=== PATIENT | male | born 1975 | race Caucasian/White ===

== ENCOUNTER → 2017-05-16 | Outpatient (CLI) | payer BC ==
[~2017-05-16] MED LIST: ALPR0.5T72 PO; BSP5T PO; CLINDAMYCIN 150 MG PO; HYDR1TAB8 PO
--- NOTE | 2017-05-16 16:18 | Diagnostic Imaging Report ---
PATIENT HISTORY: RT RIB PAIN. Fall from tree three days ago. TECHNIQUE: AP and oblique views of the right ribs. COMPARISON: None. FINDINGS: The right lung is clear. No pneumothorax is seen. No acute displaced rib fractures are seen. IMPRESSION: No acute displaced rib fractures seen. Dictated by: Dictated on workstation # [id number]
== END ==
LOC: RAD 15:41
PROVIDERS: ATTEND Nurse Practitioner Family
DX: R07.81 Pleurodynia (principal); W19.XXXA Unspecified fall, initial encounter
CPT/HCPCS: 71100

== ENCOUNTER 2017-12-29 13:00 | Outpatient (CLI) | payer BC | END 2017-12-29 13:30 | disposition home or self-care (01) | LOC: SLEEP 13:00 | PROVIDERS: ATTEND Nurse Practitioner Family | DX: G47.33 Obstructive sleep apnea (adult) (pediatric) (principal) ==

== ENCOUNTER 2018-06-28 11:00 | Outpatient (RCR) | payer BC | END 2018-07-06 | disposition home or self-care (01) | DX: M54.6 Pain in thoracic spine (principal); M25.552 Pain in left hip ==

== ENCOUNTER 2019-09-26 09:58 | Emergency (ER) | payer BC ==
[~2019-09-26] VITALS: Ht 182 cm; Wt 97.7 kg
--- OUTSIDE RECORDS SUMMARY | 2019-09-26 10:06 | XMS REPORT | CCD ---
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 Name Role Phone PP Unavailable CCM Unavailable Summary Purpose Interface Exchange Insurance Providers Payer name Policy type / Coverage type Covered democrat ID Effective Begin Date Effective End Date Blue Cross Blue [facility] e Cross/Blue Shield [id number] 2017 Un known Family history Father Diagnosis Age At Onset Hyperlipidemia Unknown Coronary Artery Disease Unknown Hypertension Unknown Social History Social History Element Codes Description Effective Dates Marital status Unknown M arried 12/24/2013 Number of children Unknown 2 12/24/2013 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 12/24/[address]: 260353 Currently drinks alcohol 5 per week 12/24/2013 Allergies, Adverse Reactions, Alerts Substance Reaction Codes Entered Date Inactivated Date Status SULFA(SULFONAMIDE AN TIBIOTICS) rash, Unknown 4 No Inactive Date Active Past Medical History Illness Codes Condition Status Onset Date Resolved Date Pleurodynia ICD-9: 786.50 ICD-10: R07.81 Active 05/16/2017 Unknown Attention-deficit hy peractivity disorder, 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 ICD-10: F90.0 Active 12/24/2015 Unknown Encounter for genera l adult medical examination without abnormal findings ICD-9: V70.0 ICD-10: Z00.00 Active 12/24/2015 Unknown Acute laryngopharyng itis ICD-9: 465.0 ICD-10: J06.0 Active 06/17/2016 Unknown Other allergic rhinitis ICD-9: 477.8 ICD-10: J30.89 Active 06/17/2016 Unknown Other malaise ICD-9: 780.79 ICD-10: R53.81 Active 06/17/2016 Unknown Generalized anxiety disorder ICD-9: 300.00 ICD-10: F41.1 Active 12/24/2015 Unknown Irritable bowel synd cammie with diarrhea ICD-9: 564.1 ICD-10: K58.0 Active 12/24/2015 Unknown Anxiety ICD-9: 300.00 Active 12/24/2013 Unknow n Family history of ca rdiovascular disease ICD-9: V17.49 Active 12/24/2013 Unknown Irritable bowel synd cammie ICD-9: 564.1 Active 04/2013 Unknown Problems Condition Codes Effectiv e Dates Condition Status Pleurodynia ICD-9: 786.50 ICD-10: R07.81 05/16/2017 Active Attention-deficit hy peractivity disorder, 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 ICD-10: F90.0 12/24/2015 Active Encounter for genera l adult medical examination without abnormal findings ICD-9: V70.0 ICD-10: Z00.00 12/24/2015 Active Acute laryngopharyng itis ICD-9: 465.0 ICD-10: J06.0 06/17/2016 Active Other allergic rhinitis ICD-9: 477.8 ICD-10: J30.89 06/17/2016 Active Other malaise ICD-9: 780.79 ICD-10: R53.81 06/17/2016 Active Generalized anxiety disorder ICD-9: 300.00 ICD-10: F41.1 12/24/2015 Active Irritable bowel synd cammie with diarrhea ICD-9: 564.1 ICD-10: K58.0 12/24/2015 Active Anxiety ICD-9: 300.00 12/24/2013 Active Family history of ca rdiovascular disease ICD-9: V17.49 12/24/2013 Active Irritable bowel synd cammie ICD-9: 564.1 12/24/2013 Active Medications Medication Codes Instruc tions Start Date Stop Date Sta tus Fill Instructions buspirone 7.5 mg tablet RxNorm: 151014 1 TABLET(S) PO BID 09/19/2018 03/17/2019 Active hyoscyamine 0.125 mg sublingual tablet RxNorm: 1983622 TABLET(S) 1 TABLET(S ) SL TID PRN NEEDED 07/18/2018 08/16/2018 Inactive alprazolam 0.5 mg ta blet RxNorm: 547676 1 Tablet(s) PO BID as neede d 09/28/2017 11/26/2017 Inactive alprazolam 0.5 mg ta blet RxNorm: 169930 1 Tablet(s) PO BID as neede d 09/28/2017 10/27/2017 Inactive Adderall XR 10 mg ca psule,extended release RxNorm: 209662 1 Capsule(s) PO BID 08/19/2017 09/17/2017 In active Adderall XR 10 mg ca psule,extended release RxNorm: 475865 1 Capsule(s) PO BID 08/19/2017 09/17/2017 In active hyoscyamine 0.125 mg sublingual tablet RxNorm: 9301523 TABLET(S) 1 TABLET(S ) SL TID PRN NEEDED 08/15/2017 09/13/2017 Inactive Adderall XR 10 mg ca psule,extended release RxNorm: 337540 1 Capsule(s) PO BID 07/04/2017 08/02/2017 In active Percocet 5 mg-325 mg tablet RxNorm: 3223899 1 Tablet(s) PO Q6 PRN 05/16/2017 No Stop Date Active buspirone 7.5 mg tablet RxNorm: 058804 1 Tablet(s) PO BID 05/16/2017 02/09/2018 Inactive Adderall XR 10 mg ca psule,extended release RxNorm: 748992 1 Capsule(s) PO BID 05/16/2017 06/14/2017 In active alprazolam 0.5 mg ta blet RxNorm: 899467 1 Tablet(s) PO BID as neede d 05/16/2017 07/14/2017 Inactive Adderall XR 10 mg ca psule,extended release RxNorm: 839900 1 Capsule(s) PO BID 03/21/2017 04/19/2017 In active alprazolam 0.5 mg ta blet RxNorm: 053689 1 Tablet(s) PO BID as neede d 03/03/2017 05/01/2017 Inactive Adderall XR 10 mg ca psule,extended release RxNorm: 107709 1 Capsule(s) PO BID 01/25/2017 02/23/2017 In active Adderall XR 10 mg ca psule,extended release RxNorm: 255415 1 Capsule(s) PO daily 12/30/2016 01/24/2017 In active methylphenidate 10 m g tablet RxNorm: 9177261 1 Tablet(s) PO daily and 1/2 tab at noon as needed 10/06/2016 12/29/2016 Inactive alprazolam 0.5 mg ta blet RxNorm: 228682 1 Tablet(s) PO BID as neede d 09/14/2016 12/11/2016 Inactive Augmentin 500 mg-125 mg tablet RxNorm: 148019 1 Tablet(s) PO TID 06/18/2016 06/27/2016 Inactive Augmentin 500 mg-125 mg tablet RxNorm: 872635 1 Tablet(s) PO TID 06/18/2016 06/17/2016 Inactive methylphenidate 10 m g tablet RxNorm: 9019748 1 Tablet(s) PO daily and 1/2 tab at noon as needed 06/14/2016 07/13/2016 Inactive hyoscyamine 0.125 mg sublingual tablet RxNorm: 1128342 Tablet(s) 1 TABLET(S ) SL TID PRN NEEDED 05/19/2016 06/27/2016 Inactive methylphenidate 10 m g tablet RxNorm: 6199650 1 Tablet(s) PO daily and 1/2 at noon as needed 04/23/2016 05/22/2016 Inactive alprazolam 0.5 mg ta blet RxNorm: 900769 1 Tablet(s) PO BID as neede d 03/30/2016 07/25/2016 Inactive hyoscyamine 0.125 mg sublingual tablet RxNorm: 4521158 Tablet(s) 1 TABLET(S ) SL TID PRN NEEDED 03/30/2016 05/18/2016 Inactive methylphenidate 10 m g tablet RxNorm: 6719738 1 Tablet(s) PO daily and 1/2 at noon as needed 02/19/2016 04/22/2016 Inactive methylphenidate 10 m g tablet RxNorm: 9197161 1 Tablet(s) PO daily and 1/2 at noon as needed 02/19/2016 06/13/2016 Inactive hyoscyamine 0.125 mg sublingual tablet RxNorm: 1335403 1 TABLET(S) SL TID P RN NEEDED 02/19/2016 03/29/2016 Inactive alprazolam 0.5 mg ta blet RxNorm: 728076 1 Tablet(s) PO BID as neede d 01/08/2016 03/07/2016 Inactive methylphenidate 10 m g tablet RxNorm: 9482445 1 Tablet(s) PO daily and 1/2 at noon as needed 01/08/2016 02/18/2016 Inactive alprazolam 0.5 mg ta blet RxNorm: 818106 1 Tablet(s) PO QDAY PRN 12/25/2015 01/07/2016 Inactive methylphenidate 5 mg tablet RxNorm: 6305802 1 Tablet(s) PO daily 12/25/2015 01/07/2016 Inactive buspirone 7.5 mg tablet RxNorm: 908700 1 Tablet(s) PO BID 12/25/2015 09/19/2016 Inactive hyoscyamine 0.125 mg sublingual tablet RxNorm: 7608027 1 Tablet(s) SL TID P RN as needed 12/25/2015 03/29/2016 Inactive alprazolam 0.5 mg ta blet RxNorm: 390548 1 Tablet(s) PO QDAY PRN 11/17/2015 12/24/2015 Inactive alprazolam 0.5 mg ta blet RxNorm: 242824 1 Tablet(s) PO QDAY PRN 06/27/2015 05/18/2016 Inactive hyoscyamine 0.125 mg sublingual tablet RxNorm: 7513003 1 Tablet(s) SL TID P RN as needed 12/23/2014 06/20/2015 Inactive buspirone 7.5 mg tablet RxNorm: 626117 1 Tablet(s) PO BID 12/23/2014 09/18/2015 Inactive alprazolam 0.5 mg ta blet RxNorm: 439033 1 Tablet(s) PO QDAY PRN 12/23/2014 11/16/2015 Inactive buspirone 7.5 mg tablet RxNorm: 991653 1 Tablet(s) PO BID 12/24/2013 09/19/2014 Inactive hyoscyamine 0.125 mg sublingual tablet RxNorm: 1645742 1 Tablet(s) SL TID P RN as needed 12/24/2013 06/21/2014 Inactive hyoscyamine 0.125 mg sublingual tablet RxNorm: 2623980 Tablet(s) SL as need ed No Start Date 12/23/2013 Inactive alprazolam 0.5 mg ta blet RxNorm: 777984 Tablet(s) PO PRN No Start Date 12/22/2014 Inactive buspirone 7.5 mg tablet RxNorm: 460053 1 Tablet(s) PO BID No Start Date 12/23/2013 Inactive Medication Administered No Medication Administered data Immunizations Vaccine Codes Date Status Influenza CVX: 141 11/21 completed Tetanus, Diptheria, Pertussis CVX: 113 08/22/2003 completed Tetanus/Diptheria CVX: 113 08/22/2003 completed Assessments Condition Codes Effectiv e Dates Pleurodynia ICD-10: R07.81 ICD-9: 786.50 05/16/2017 Encounter for general adult medical exam ination without abnormal findings ICD-10: Z00.00 ICD-9: V70.0 12/30/2016 Attention-deficit hyperactivity disorder , predominantly inattentive type ICD-10: F90.0 ICD-9: 314.00 12/30/2016 Other allergic rhinitis ICD-10: J30. 89 ICD-9: 477.8 06/17/2016 Acute laryngopharyngitis ICD-10: J06 .0 ICD-9: 465.0 06/17/2016 Other malaise ICD-10: R53.81 ICD-9: 780.79 06/17/2016 Irritable bowel syndrome with diarrhea ICD-10: K58.0 ICD-9: 564.1 12/25/2015 Generalized anxiety disorder ICD-10: F41.1 ICD-9: 300.00 12/25/2015 Family history of cardiovascular disease ICD-9: V17.49 12/24/2013 Anxiety ICD-9: 300.00 Irritable bowel syndrome ICD-9: 564.1 12/24/2013 Reason For Visit Reason For Visit Effective Dates Notes chest pain/pressure 05/16/2017 well man exam (18-39 years) 12/30/2016 sinus congestion 06/17/2016 well man exam (18-39 years) 12/25/2015 anxiety 12/23/2014 anxiety 12/24/2013 Results Observation Observation Code Item Item Code Result Date C A/B FLU 6609581 Influe nza A Scr Negative 06/17/2016 C A/B FLU 3561110 Influe nza B Scr Negative 06/17/2016 Cbc With Differential Ord2 WBC 7.57 K/ul 12/25/2015 Cbc With Differential Ord2 RBC 5.15 M/ul 12/25/2015 Cbc With Differential Ord2 HGB 15.3 g/dl 12/25/2015 Cbc With Differential Ord2 HCT 45.1 % 12/25/2015 Cbc With Differential Ord2 Neut% 55.0 % 12/25/2015 Cbc With Differential Ord2 MCV 87.6 fl 12/25/2015 Cbc With Differential Ord2 Lymph% 34.5 % 12/25/2015 Cbc With Differential Ord2 MCH 29.7 pg 12/25/2015 Cbc With Differential Ord2 [place]% 8.1 % 12/25/2015 Cbc With Differential Ord2 MCHC 33.9 pg 12/25/2015 Cbc With Differential Ord2 Eos% 2.1 % 12/25/2015 Cbc With Differential Ord2 PLT 250 K/ul 12/25/2015 Cbc With Differential Ord2 Baso% 0.3 % 12/25/2015 Cbc With Differential Ord2 RDW 14.2 % 12/25/2015 Cbc With Differential Ord2 Neut ABS# 4.17 K/ul 12/25/2015 Cbc With Differential Ord2 Lymph ABS# 2.61 K/ul 12/25/2015 Cbc With Differential Ord2 [place] ABS# 0.6 K/ul 12/25/2015 Cbc With Differential Ord2 Eos ABS# 0.2 K/ul 12/25/2015 Cbc With Differential Ord2 Baso ABS# 0.0 K/ul 12/25/2015 Comp Metabolic Aat031 NA 140 mEq/L 12/25/2015 Comp Metabolic Vbk791 K 4.5 mEq/L 12/25/2015 Comp Metabolic Kda238 CL 107 mEq/L 12/25/2015 Comp Metabolic Kma853 CO2 27.0 mEq/L 12/25/2015 Comp Metabolic Wkd175 AN ION GAP 11 12/25/2015 Comp Metabolic Vqi186 GL UCOSE 92 mg/dL 12/25/2015 Comp Metabolic Kyo261 Cr eat 0.8 mg/dL 12/25/2015 Comp Metabolic Gts487 eG FR 113 ml/min/1.73m2 04/2015 Comp Metabolic Nqp818 BUN 15 mg/dL 12/25/2015 Comp Metabolic Vvi303 B/ C Ratio 18.5 Ratio 12/25/2015 Comp Metabolic Jlo821 CA LCIUM 9.4 mg/dL 12/25/2015 Comp Metabolic Lms049 AL K PHOS 37 U/L 12/25/2015 Comp Metabolic Knf668 T(SGOT) 24 U/L 12/25/2015 Comp Metabolic Tln490 AL T(SGPT) 25 U/L 12/25/2015 Comp Metabolic Hrc265 BI LI T 0.8 mg/dL 12/25/2015 Comp Metabolic Cgg476 AL BUMIN 4.5 g/dL 12/25/2015 Comp Metabolic Gsj387 TP RO 6.7 g/dL 12/25/2015 Comp Metabolic Hbm731 GL OB 2.2 g/dL 12/25/2015 Comp Metabolic Szs387 A/ G Ratio 2.1 Ratio 12/25/2015 Comp Metabolic Vue001 Os mo 280 mOsmo 12/25/2015 Tsh Ord6 hTSH II 1.84 uIU/mL 12/25/2015 Lipid Ord30 CHOL 183 mg/dL 12/25/2015 Lipid Ord30 HDL 54.0 mg/dl 12/25/2015 Lipid Ord30 TRIG 76 mg/dL 12/25/2015 Lipid Ord30 LDL 114 mg/dL 12/25/2015 Lipid Ord30 C/HDL 3.4 Ratio 12/25/2015 Review of Systems System Result Effective Dates Constitutional No recent illness 05/16/2017 Constitutional No anorexia 05/16/2017 Constitutional No night sweats 05/16/2017 Constitutional No chills 05/16/2017 Constitutional No diaphoresis 05/16/2017 Constitutional No fatigue 05/16/2017 Constitutional No fever 05/16/2017 Constitutional No insomnia 05/16/2017 Constitutional No malaise 05/16/2017 Constitutional No weight loss 05/16/2017 Constitutional No weight gain 05/16/2017 Cardiovascular No chest pain/pressure 05/16/2017 Respiratory No cough Respiratory No chest congestion 05/16/2017 Respiratory No dyspnea on exertion 05/16/2017 Dermatologic No rash Musculoskeletal bone pain 05/16/2017 Neurologic No alteration of consciousness 05/16/2017 Constitutional No recent illness 12/30/2016 Constitutional No anorexia 12/30/2016 Constitutional No night sweats 12/30/2016 Constitutional No chills 12/30/2016 Eyes No vision change Ears/Nose/Throat/Neck No dizziness 12/30/2016 Ears/Nose/Throat/Neck No headache 12/30/2016 Cardiovascular No chest pain/pressure 12/30/2016 Cardiovascular No dyspnea 12/30/2016 Respiratory No chest congestion 12/30/2016 Respiratory No chest tightness 12/30/2016 Respiratory No cough 10/2016 Gastrointestinal No anorexia 12/30/2016 Gastrointestinal No constipation 12/30/2016 Gastrointestinal No nausea 12/30/2016 Gastrointestinal No vomiting 12/30/2016 Genitourinary/Nephrology No anuria/oliguri a 12/30/2016 Genitourinary/Nephrology No dysuria 12/30/2016 Musculoskeletal No stiffness 12/30/2016 Musculoskeletal No swelling 12/30/2016 Dermatologic No rash 10/2016 Dermatologic No sores Neurologic No dizziness 12/30/2016 Neurologic No headache 1 03/01/2016 Psychiatric anxiety 10/2016 Psychiatric No depression 12/30/2016 Constitutional recent illness 06/17/2016 Constitutional chills Constitutional fever Eyes No eye erythema Ears/Nose/Throat/Neck nasal allergies 06/17/2016 Ears/Nose/Throat/Neck nasal discharge 06/17/2016 Ears/Nose/Throat/Neck postnasal drip 06/17/2016 Ears/Nose/Throat/Neck sinus congestion 06/17/2016 Ears/Nose/Throat/Neck sore throat 06/17/2016 Cardiovascular No chest pain/pressure 06/17/2016 Cardiovascular No dyspnea 06/17/2016 Respiratory chest congestion 06/17/2016 Respiratory cough 2016 Respiratory No dyspnea 0 06/17/2016 Gastrointestinal No constipation 06/17/2016 Gastrointestinal No diarrhea 06/17/2016 Gastrointestinal No nausea 06/17/2016 Gastrointestinal No vomiting 06/17/2016 Dermatologic No rash Neurologic No alteration of consciousness 06/17/2016 Neurologic No mental status change 06/17/2016 Constitutional No recent illness 12/25/2015 Constitutional No anorexia 12/25/2015 Constitutional No night sweats 12/25/2015 Constitutional No chills 12/25/2015 Psychiatric anxiety 11/0 04/2015 Eyes No vision change Ears/Nose/Throat/Neck No dizziness 12/25/2015 Ears/Nose/Throat/Neck No headache 12/25/2015 Cardiovascular No chest pain/pressure 12/25/2015 Cardiovascular No dyspnea 12/25/2015 Respiratory No chest congestion 12/25/2015 Respiratory No chest tightness 12/25/2015 Respiratory No cough 04/2015 Gastrointestinal No vomiting 12/25/2015 Gastrointestinal No nausea 12/25/2015 Gastrointestinal gas and bloating 12/25/2015 Gastrointestinal diarrhea 12/25/2015 Gastrointestinal No constipation 12/25/2015 Gastrointestinal abdominal pain 12/25/2015 Gastrointestinal No anorexia 12/25/2015 Genitourinary/Nephrology No anuria/oliguri a 12/25/2015 Genitourinary/Nephrology No dysuria 12/25/2015 Musculoskeletal No stiffness 12/25/2015 Musculoskeletal No swelling 12/25/2015 Dermatologic No rash 04/2015 Dermatologic No sores Neurologic No dizziness 12/25/2015 Neurologic No headache 1 02/23/2015 Psychiatric No depression 12/25/2015 Constitutional recent illness 12/23/2014 Constitutional No anorexia 12/23/2014 Constitutional No night sweats 12/23/2014 Constitutional No chills 12/23/2014 Constitutional No diaphoresis 12/23/2014 Constitutional fatigue 1 02/22/2014 Constitutional No fever 12/23/2014 Constitutional No insomnia 12/23/2014 Eyes No eye discharge Eyes No eye erythema 03/2014 Ears/Nose/Throat/Neck No dizziness 12/23/2014 Ears/Nose/Throat/Neck No headache 12/23/2014 Cardiovascular No chest pain/pressure 12/23/2014 Cardiovascular No dyspnea 12/23/2014 Respiratory No cough 03/2014 Gastrointestinal No abdominal pain 12/23/2014 Gastrointestinal No constipation 12/23/2014 Gastrointestinal No diarrhea 12/23/2014 Genitourinary/Nephrology No dysuria 12/23/2014 Musculoskeletal No joint complaint 12/23/2014 Dermatologic No rash 03/2014 Neurologic No alteration of consciousness 12/23/2014 Psychiatric anxiety 03/2014 Endocrine No dry or coarse skin 12/23/2014 Hematologic/Lymphatic No abnormal bl eeding and bruising 12/23/2014 Constitutional No recent illness 12/24/2013 Constitutional No anorexia 12/24/2013 Constitutional No night sweats 12/24/2013 Constitutional No chills 12/24/2013 Constitutional No diaphoresis 12/24/2013 Constitutional No fatigue 12/24/2013 Constitutional No fever 12/24/2013 Constitutional No insomnia 12/24/2013 Constitutional No malaise 12/24/2013 Eyes No eye discharge Eyes No eye erythema 04/2013 Ears/Nose/Throat/Neck No dizziness 12/24/2013 Ears/Nose/Throat/Neck No headache 12/24/2013 Cardiovascular No chest pain/pressure 12/24/2013 Cardiovascular No dyspnea 12/24/2013 Cardiovascular No edema 12/24/2013 Respiratory No productive sputum 12/24/2013 Respiratory No chest congestion 12/24/2013 Respiratory No cough 04/2013 Gastrointestinal No diarrhea 12/24/2013 Gastrointestinal No constipation 12/24/2013 Gastrointestinal No vomiting 12/24/2013 Gastrointestinal No nausea 12/24/2013 Genitourinary/Nephrology No dysuria 12/24/2013 Musculoskeletal No joint complaint 12/24/2013 Dermatologic No rash 04/2013 Dermatologic No sores Neurologic No alteration of consciousness 12/24/2013 Physical Exam Exam Name System Name It em Name Status Result Effective Dates Notes Full Exam - General 1994 Constitutional general appearance Overall: well developed 05/16/2017 None Full Exam - General 1994 Constitutional general appearance Overall: well nourished 05/16/2017 None Full Exam - General 1994 Constitutional general appearance Evidence of Distress: in distress secondary to pain 05/16/2017 None Full Exam - General 1994 Psychiatric orientation/consciousness Overall: oriented to person, place and time 05/16/2017 None Full Exam - General 1994 Respiratory auscultation Overall: breath sounds clear bilaterally 05/16/2017 None Full Exam - General 1994 Respiratory respiratory effort/rhythm Overall: no retractions 05/16/2017 None Full Exam - General 1994 Respiratory respiratory effort/rhythm Overall: normal rate 05/16/2017 None Full Exam - General 1994 Respiratory palpation of chest Chest wall pain: pain to light pressure 05/16/2017 right lower anterior ribs with swelling over ribs Full Exam - General 1994 Constitutional general appearance Development: well developed 12/30/2016 None Full Exam - General 1994 Constitutional general appearance Development: appears stated age 1112/30/2016 None Full Exam - General 1994 Constitutional general appearance Overall: in no acute distress 12/30/2016 None Full Exam - General 1994 Eyes pupils and irises Overall: pupils equal, round, reactive to light and accomodation 12/30/2016 None Full Exam - General 1994 Ears/Nose/Throat oral cavity/pharynx/larynx Overall: oral mucosa clear 12/30/2016 None Full Exam - General 1994 Respiratory auscultation Overall: breath sounds clear bilaterally 12/30/2016 None Full Exam - General 1994 Respiratory respiratory effort/rhythm Overall: no retractions 12/30/2016 None Full Exam - General 1994 Respiratory respiratory effort/rhythm Overall: normal rate 12/30/2016 None Full Exam - General 1994 Cardiovascular auscultation of heart Overall: regular rate 12/30/2016 None Full Exam - General 1994 Cardiovascular auscultation of heart Overall: normal heart sounds 12/30/2016 None Full Exam - General 1994 Cardiovascular auscultation of heart Overall: no murmurs 12/30/2016 None Full Exam - General 1994 Abdomen abdominal exam Bowel sounds: hyperactive 12/30/2016 None Full Exam - General 1994 Abdomen abdominal exam Upper quadrant: non-tender to palpat ion 12/30/2016 None Full Exam - General 1994 Musculoskeletal gait and station Overall: normal gait 12/30/2016 None Full Exam - General 1994 Musculoskeletal gait and station Overall: normal station 12/30/2016 None Full Exam - General 1994 Integument inspection of skin Overall: no rash, lesions 12/30/2016 None Full Exam - General 1994 Neurologic mental status Overall: alert 12/30/2016 None Full Exam - General 1994 Neurologic mental status Overall: oriented 12/30/2016 None Full Exam - General 1994 Psychiatric orientation/consciousness Overall: oriented to person, place and time 12/30/2016 None Full Exam - General 1994 Lymphatic neck nodes Overall: anterior cervical chain benign 12/30/2016 None Full Exam - General 1994 Lymphatic neck nodes Overall: posterior cervical chain benign 12/30/2016 None Full Exam - ENT Constitutional general appearance Overall: well nourished 06/17/2016 None Full Exam - ENT Constitutional general appearance Overall: well developed 06/17/2016 None Full Exam - ENT Constitutional general appearance Overall: in no acute distress 06/17/2016 None Full Exam - ENT Ears/Nose/Throat otoscopic exam Overall: external auditory canals normal 06/17/2016 None Full Exam - ENT Ears/Nose/Throat otoscopic exam Left tympanic membrane: air-fluid le herve 06/17/2016 None Full Exam - ENT Ears/Nose/Throat otoscopic exam Right tympanic membrane: air-fluid level 06/17/2016 None Full Exam - ENT Ears/Nose/Throat lips/teeth/gingiva Overall: benign lips 06/17/2016 None Full Exam - ENT Ears/Nose/Throat oropharynx Overall: oral mucosa clear 06/17/2016 None Full Exam - ENT Ears/Nose/Throat oropharynx Posterior Pharynx: clear post nasal drainage 06/17/2016 None Full Exam - ENT Ears/Nose/Throat oropharynx Posterior Pharynx: erythema 06/17/2016 None Full Exam - ENT Respiratory inspection Overall: no retractions 06/17/2016 None Full Exam - ENT Respiratory inspection Overall: normal rate None Full Exam - ENT Respiratory auscultation Overall: breath sounds clear bilater ally 06/17/2016 None Full Exam - ENT Cardiovascular auscultation of heart Rate: normal rate 06/17/2016 None Full Exam - ENT Cardiovascular auscultation of heart Rhythm: regular rhythm 06/17/2016 None Full Exam - ENT Lymphatic palpation of lymph nodes Overall: anterior cervical chain benign 06/17/2016 None Full Exam - ENT Lymphatic palpation of lymph nodes Overall: posterior cervical chain benign 06/17/2016 None Full Exam - ENT Neurologic mood and affect Overall: normal mood 06/17/2016 None Full Exam - ENT Neurologic mood and affect Overall: normal affect 06/17/2016 None Full Exam - ENT Neurologic orientation Overall: oriented to person, place a nd time 06/17/2016 None Full Exam - General 1994 Constitutional general appearance Development: well developed 12/25/2015 None Full Exam - General 1994 Constitutional general appearance Development: appears stated age 1112/25/2015 None Full Exam - General 1994 Constitutional general appearance Overall: in no acute distress 12/25/2015 None Full Exam - General 1994 Eyes pupils and irises Overall: pupils equal, round, reactive to light and accomodation 12/25/2015 None Full Exam - General 1994 Ears/Nose/Throat oral cavity/pharynx/larynx Overall: oral mucosa clear 12/25/2015 None Full Exam - General 1994 Respiratory auscultation Overall: breath sounds clear bilaterally 12/25/2015 None Full Exam - General 1994 Respiratory respiratory effort/rhythm Overall: no retractions 12/25/2015 None Full Exam - General 1994 Respiratory respiratory effort/rhythm Overall: normal rate 12/25/2015 None Full Exam - General 1994 Cardiovascular auscultation of heart Overall: regular rate 12/25/2015 None Full Exam - General 1994 Cardiovascular auscultation of heart Overall: normal heart sounds 12/25/2015 None Full Exam - General 1994 Cardiovascular auscultation of heart Overall: no murmurs 12/25/2015 None Full Exam - General 1994 Abdomen abdominal exam Bowel sounds: hyperactive 12/25/2015 None Full Exam - General 1994 Abdomen abdominal exam Upper quadrant: non-tender to palpat ion 12/25/2015 None Full Exam - General 1994 Integument inspection of skin Overall: no rash, lesions 12/25/2015 None Full Exam - General 1994 Neurologic mental status Overall: alert 12/25/2015 None Full Exam - General 1994 Neurologic mental status Overall: oriented 12/25/2015 None Full Exam - General 1994 Psychiatric orientation/consciousness Overall: oriented to person, place and time 12/25/2015 None Full Exam - General 1994 Musculoskeletal gait and station Overall: normal gait 12/25/2015 None Full Exam - General 1994 Musculoskeletal gait and station Overall: normal station 12/25/2015 None Full Exam - General 1994 Constitutional general appearance Overall: well developed 12/23/2014 None Full Exam - General 1994 Constitutional general appearance Overall: in no acute distress 12/23/2014 None Full Exam - General 1994 Constitutional general appearance Overall: well nourished 12/23/2014 None Full Exam - General 1994 Eyes conjunctiva/eyelids Overall: conjunctiva clear 12/23/2014 None Full Exam - General 1994 Eyes conjunctiva/eyelids Overall: cornea clear 12/23/2014 None Full Exam - General 1994 Eyes conjunctiva/eyelids Overall: eyelids normal 12/23/2014 None Full Exam - General 1994 Eyes pupils and irises Overall: pupils equal, round, reactive to light and accomodation 12/23/2014 None Full Exam - General 1994 Ears/Nose/Throat otoscopic exam Overall: external auditory canals clear 12/23/2014 None Full Exam - General 1994 Ears/Nose/Throat otoscopic exam Overall: tympanic membranes clear 12/23/2014 None Full Exam - General 1994 Ears/Nose/Throat oral cavity/pharynx/larynx Overall: oral mucosa clear 12/23/2014 None Full Exam - General 1994 Ears/Nose/Throat oral cavity/pharynx/larynx Overall: oropharyngeal mucosa clear 12/23/2014 None Full Exam - General 1994 Ears/Nose/Throat oral cavity/pharynx/larynx Overall: no masses 12/23/2014 None Full Exam - General 1994 Respiratory auscultation Overall: breath sounds clear bilaterally 12/23/2014 None Full Exam - General 1994 Respiratory respiratory effort/rhythm Overall: no retractions 12/23/2014 None Full Exam - General 1994 Respiratory respiratory effort/rhythm Overall: normal rate 12/23/2014 None Full Exam - General 1994 Cardiovascular extremities Overall: no clubbing 12/23/2014 None Full Exam - General 1994 Cardiovascular auscultation of heart Overall: regular rate 12/23/2014 None Full Exam - General 1994 Cardiovascular auscultation of heart Overall: normal heart sounds 12/23/2014 None Full Exam - General 1994 Cardiovascular auscultation of heart Overall: no murmurs 12/23/2014 None Full Exam - General 1994 Abdomen abdominal exam Overall: no tenderness 12/23/2014 None Full Exam - General 1994 Abdomen abdominal exam Overall: normal bowel sounds 12/23/2014 None Full Exam - General 1994 Lymphatic neck nodes Overall: anterior cervical chain benign 12/23/2014 None Full Exam - General 1994 Lymphatic neck nodes Overall: posterior cervical chain benign 12/23/2014 None Full Exam - General 1994 Musculoskeletal digits and nails Overall: no clubbing 12/23/2014 None Full Exam - General 1994 Musculoskeletal digits and nails Overall: digits benign 12/23/2014 None Full Exam - General 1994 Musculoskeletal gait and station Overall: normal gait 12/23/2014 None Full Exam - General 1994 Musculoskeletal gait and station Overall: normal station 12/23/2014 None Full Exam - General 1994 Musculoskeletal head and neck Overall: head atraumatic 12/23/2014 None Full Exam - General 1994 Musculoskeletal head and neck Overall: cervical spine benign 12/23/2014 None Full Exam - General 1994 Integument inspection of skin Overall: no rash, lesions 12/23/2014 None Full Exam - General 1994 Neurologic deep tendon reflexes Overall: deep tendon reflexes intact 12/23/2014 None Full Exam - General 1994 Neurologic cranial nerves Overall: crainial nerves 2 - 12 grossly intact 12/23/2014 None Full Exam - General 1994 Psychiatric orientation/consciousness Overall: oriented to person, place and time 12/23/2014 None Full Exam - General 1994 Psychiatric orientation/consciousness Overall: oriented to person, place and time 12/24/2013 None Full Exam - General 1994 Neurologic deep tendon reflexes Overall: deep tendon reflexes intact 12/24/2013 None Full Exam - General 1994 Neurologic cranial nerves Overall: crainial nerves 2 - 12 grossly intact 12/24/2013 None Full Exam - General 1994 Integument inspection of skin Overall: no rash, lesions 12/24/2013 None Full Exam - General 1994 Musculoskeletal digits and nails Overall: digits benign 12/24/2013 None Full Exam - General 1994 Musculoskeletal digits and nails Overall: no clubbing 12/24/2013 None Full Exam - General 1994 Musculoskeletal head and neck Overall: cervical spine benign 12/24/2013 None Full Exam - General 1994 Musculoskeletal head and neck Overall: head atraumatic 12/24/2013 None Full Exam - General 1994 Musculoskeletal gait and station Overall: normal station 12/24/2013 None Full Exam - General 1994 Musculoskeletal gait and station Overall: normal gait 12/24/2013 None Full Exam - General 1994 Lymphatic neck nodes Overall: anterior cervical chain benign 12/24/2013 None Full Exam - General 1994 Lymphatic neck nodes Overall: posterior cervical chain benign 12/24/2013 None Full Exam - General 1994 Abdomen abdominal exam Overall: no tenderness 12/24/2013 None Full Exam - General 1994 Abdomen abdominal exam Overall: normal bowel sounds 12/24/2013 None Full Exam - General 1994 Cardiovascular auscultation of heart Overall: regular rate 12/24/2013 None Full Exam - General 1994 Cardiovascular auscultation of heart Overall: normal heart sounds 12/24/2013 None Full Exam - General 1994 Cardiovascular auscultation of heart Overall: no murmurs 12/24/2013 None Full Exam - General 1994 Cardiovascular extremities Overall: no clubbing 12/24/2013 None Full Exam - General 1994 Respiratory auscultation Overall: breath sounds clear bilaterally 12/24/2013 None Full Exam - General 1994 Respiratory respiratory effort/rhythm Overall: normal rate 12/24/2013 None Full Exam - General 1994 Respiratory respiratory effort/rhythm Overall: no retractions 12/24/2013 None Full Exam - General 1994 Ears/Nose/Throat otoscopic exam Overall: tympanic membranes clear 12/24/2013 None Full Exam - General 1994 Ears/Nose/Throat otoscopic exam Overall: external auditory canals clear 12/24/2013 None Full Exam - General 1994 Ears/Nose/Throat oral cavity/pharynx/larynx Overall: oropharyngeal mucosa clear 12/24/2013 None Full Exam - General 1994 Ears/Nose/Throat oral cavity/pharynx/larynx Overall: no masses 12/24/2013 None Full Exam - General 1994 Ears/Nose/Throat oral cavity/pharynx/larynx Overall: oral mucosa clear 12/24/2013 None Full Exam - General 1994 Eyes conjunctiva/eyelids Overall: conjunctiva clear 12/24/2013 None Full Exam - General 1994 Eyes conjunctiva/eyelids Overall: eyelids normal 12/24/2013 None Full Exam - General 1994 Eyes conjunctiva/eyelids Overall: cornea clear 12/24/2013 None Full Exam - General 1994 Eyes pupils and irises Overall: pupils equal, round, reactive to light and accomodation 12/24/2013 None Full Exam - General 1994 Constitutional general appearance Overall: well nourished 12/24/2013 None Full Exam - General 1994 Constitutional general appearance Overall: well developed 12/24/2013 None Full Exam - General 1994 Constitutional general appearance Overall: in no acute distress 12/24/2013 None Procedures No Procedures data Vital Signs Date Vital 05/16/2017 Blood Pressure 1: 116/70 Code: 8480-6 BMI: 30.9 Code: 03003-2 Heart Rate 1: 99 bpm Height: 6'1" SpO2: 95% Temperature: 36.2 (C ) / 97.1 (F) Weight: 234 lbs 12/30/2016 Blood Pressure 1: 142/88 Code: 8480-6 BMI: 30.3 Code: 40173-6 Heart Rate 1: 91 bpm Height: 6'1" SpO2: 98% Weight: 230 lbs 06/17/2016 Blood Pressure 1: 134/70 Code: 8480-6 BMI: 30.1 Code: 93937-0 Heart Rate 1: 84 bpm Height: 6'1" SpO2: 94% Temperature: 37.4 (C ) / 99.3 (F) Weight: 228 lbs 12/25/2015 Blood Pressure 1: 130/86 Code: 8480-6 BMI: 29.8 Code: 91640-5 Heart Rate 1: 85 bpm Height: 6'1" SpO2: 96% Weight: 226 lbs 12/23/2014 Blood Pressure 1: 110/68 Code: 8480-6 BMI: 27.7 Code: 74545-4 Heart Rate 1: 84 bpm Height: 6'1" SpO2: 94% Weight: 210 lbs 12/24/2013 Blood Pressure 1: 124/78 Code: 8480-6 BMI: 26.5 Code: 75040-2 Heart Rate 1: 60 bpm Height: 6'1" Weight: 201 lbs Functional Status No Functional Status data History of Present Illness Symptom Name Status Resu lt Effective Date Notes chest pain/pressure Location on the right side of the chest 05/16/2017 None chest pain/pressure Quality acute 05/16/2017 None chest pain/pressure Quality aching 05/16/2017 None chest pain/pressure Quality sharp 05/16/2017 None chest pain/pressure Quality stabbing 05/16/2017 None chest pain/pressure Onset of Symptom 3 days ago 05/16/2017 None chest pain/pressure Onset and Resolution sudden in onset 05/16/2017 None chest pain/pressure Pertinent Findings Denies anxiety 05/16/2017 None chest pain/pressure Pertinent Findings Denies back pain 05/16/2017 None chest pain/pressure Pertinent Findings chills 05/16/2017 None chest pain/pressure Pertinent Findings cough 05/16/2017 None chest pain/pressure Pertinent Findings fever 05/16/2017 None chest pain/pressure Pertinent Findings Denies lightheadedness 05/16/2017 None chest pain/pressure Pertinent Findings tachycardia 05/16/2017 None chest pain/pressure Pertinent Findings weakness 05/16/2017 None well man exam (18-39 years) Lifestyle regular seatbelt use 12/30/2016 None well man exam (18-39 years) Lifestyle normal sleep patterns 12/30/2016 None well man exam (18-39 years) Lifestyle abnormal amount of stress 12/30/2016 None well man exam (18-39 years) Nutritio n and Exercise overweight 12/30/2016 No ne well man exam (18-39 years) Nutritio n and Exercise minimal exercise 12/30/2016 None well man exam (18-39 years) Cardiova scular Risk Factors dyslipidemia 12/30/2016 None well man exam (18-39 years) Cardiova scular Risk Factors family history of cardiovascular disease 12/30/2016 None well man exam (18-39 years) Cardiova scular Risk Factors lifestyle 12/30/2016 Non e sinus congestion Location on both sides 06/17/2016 None sinus congestion Quality constant 06/17/2016 None sinus congestion Quality fullness 06/17/2016 None sinus congestion Quality pressure 06/17/2016 None sinus congestion Onset and Resolution sudden in onset 06/17/2016 None sinus congestion Onset of Symptom 4 days ago 06/17/2016 None sinus congestion Pertinent Findings cough 06/17/2016 None sinus congestion Pertinent Findings fever 06/17/2016 None sinus congestion Pertinent Findings hoarseness 06/17/2016 None sore throat Location on both sides 06/17/2016 None sore throat Quality achi ng 06/17/2016 None sore throat Quality cons tant 06/17/2016 None sore throat Quality scra tchy 06/17/2016 None sore throat Onset and Resolution sudden in onset 06/17/2016 None sore throat Onset of Symptom 4 days ago 06/17/2016 None sore throat Frequency of Episodes daily 06/17/2016 None sore throat Pertinent Findings cough 06/17/2016 None sore throat Pertinent Findings fever 06/17/2016 None sore throat Pertinent Findings hoarseness 06/17/2016 None sore throat Pertinent Findings nasal congestion 06/17/2016 None headache Location diffus jamshid 06/17/2016 None headache Quality constant 06/17/2016 None headache Quality aching 06/17/2016 None headache Quality pressure 06/17/2016 None headache Onset and Resolution sudden in onset 06/17/2016 None headache Onset of Symptom 4 days ago 06/17/2016 None abdominal pain Location diffusely 12/25/2015 None abdominal pain Quality i ntermittent 12/25/2015 None abdominal pain Quality s queezing 12/25/2015 None abdominal pain Onset of Symptom _ years ago 12/25/2015 None abdominal pain Triggers stress 12/25/2015 None abdominal pain Pertinent Findings Denies heartburn 12/25/2015 None abdominal pain Pertinent Findings Denies cough 12/25/2015 None abdominal pain Pertinent Findings Denies vomiting 12/25/2015 None well man exam (18-39 years) Nutritio n and Exercise overweight 12/25/2015 No ne well man exam (18-39 years) Health Guidanc e depression symptoms 12/25/2015 None well man exam (18-39 years) Immunizations tetanus-diphtheria booster 12/25/2015 None well man exam (18-39 years) Sexual Activit y is monogamous 12/25/2015 None anxiety Quality intermit tent 12/23/2014 None anxiety Onset and Resolution ongoing 12/23/2014 None anxiety Pertinent Findings Denies dizziness 12/23/2014 None anxiety Pertinent Findings Denies dyspnea 12/23/2014 None anxiety Onset of Symptom during adulthood 12/23/2014 None anxiety Limitation on Activities does not limit activities 12/23/2014 None anxiety Frequency of Episodes unchanged 12/23/2014 None anxiety Significant Family History anxiety disorder 12/23/2014 None anxiety Alleviating Factors medication 12/23/2014 None anxiety Onset of Symptom 12 years ago 12/24/2013 None anxiety Pertinent Findings Denies dizziness 12/24/2013 None anxiety Pertinent Findings Denies dyspnea 12/24/2013 None anxiety Pertinent Findings Denies nausea 12/24/2013 None anxiety Pertinent Findings Denies lightheadedness 12/24/2013 None anxiety Pertinent Findings Denies insomnia 12/24/2013 None anxiety Onset and Resolution ongoing 12/24/2013 None anxiety Limitation on Activities does not limit activities 12/24/2013 None anxiety Frequency of Episodes decreasing 12/24/2013 None anxiety Significant Family History anxiety disorder 12/24/2013 None anxiety Triggers stress 12/24/2013 None anxiety Alleviating Factors medication 12/24/2013 None Advance Directives No Advance Directive data Encounters Encounter Performer Loca tion Codes Date ([id number] EST. 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] Diagnosis: Generalized anxiety disorder[ICD10: F41.1] [facility] CPT-4: 37368 12/25/2015 ([id number]) PREV VISIT E ST AGE 18-39 Diagnosis: Encounter for general adult medical examination without abnormal findings[ICD10: Z00.00] [facility] CPT-4: 65658 12/23/2014 Office outpatient ne w 30 minutes Diagnosis: Anxiety[ICD9: 300.00] Diagnosis: Irritable bowel syndrome[ICD9: 564.1] Diagnosis: Family history of cardiovascular disease[ICD9: V17.49] [facility] CPT-4: 27493 12/24/2013 Plan of Care Planned Activity Notes C odes Status Date Appointment: Paulette Dominique [facility]el[id number] ([facility] min) Moderate 07/28/2017 Visit Plan: Right rib pain-will sen d patient from xray to r/o fracture-instructed patient to call if symptoms do not resolve or if any worse - discussed deep breathing/coughing every hour-RX written for pain medication and instructed on use-continue ibuprofen as directed-take with food-also discussed topical salonpas patches to affected. Patient verbalized understanding of plan. 05/16/2017 Visit Plan: Right rib pain-will sen d patient from xray to r/o fracture-instructed patient to call if symptoms do not resolve or if any worse - discussed deep breathing/coughing every hour-RX written for pain medication and instructed on use-continue ibuprofen as directed-take with food-also discussed topical salonpas patches to affected. Patient verbalized understanding of plan. 05/16/2017 Appointment: Silvia Colon WPtel: [facility]6 [phone] (15 min) Moderate 05/16/2017 Patient Education: Patient Medication Summary Completed 05/16/2017 Care Plan: X-RAY EXAM RIBS SCOOTER 3 VIEWS LOINC : 50556-6 Pending 05/16/2017 Visit Plan: Well Adult - pt was cou nseled about diet, exercise, and encouraged to follow a heart healthy diet and increase activity level. The patient was instructed to RTC yearly for well adult exams and PRN for acute illnesses. The pt was also instructed to have yearly labs for check of cholesterol, thyroid, chem panel, CBC, and renal functioning. ADHD - pt is to start on stimulant medication for treatment of the symptoms of ADHD. The pt is to call if they notice palpitations, rapid weight loss, severe insomnia that does not start to improve after 2-3 days on the medication. Pt is to call for any acute concerns, or if the medication does not seem to be working for improvement of the ADHD symptoms. Pt is aware of risk associated with medication use, and the danger of the medication if in the hands of someone to whom the medication was not prescribed. Change from methylphenidate to Adderall XR 10mg daily. 12/30/2016 Appointment: Paulette Dominique WPtel: [facility] Physical 12/30/2016 Patient Education: Patient Medication Summary Completed 12/30/2016 Patient Education: Obesity Completed 12/30/2016 Appointment: Silvia Colon WPtel: [facility] [place] [phone] Physical 12/27/2016 Visit Plan: URI - Pt advised to inc rease fluids, vitamin C. Discussed natural and expected course of this diagnosis and need to alert me if symptoms do not follow expected course, or if any worse. RX sent to patient's pharmacy. Allergies - chronic - recommended pt to use allergy medication as prescribed. Pt has been counseled as to the appropriate use of the medication. Pt to call if allergy symptoms are not controlled with the medication. If using nasal spray, instructions as follows: Nasal spray- use twice daily, one spray per nostril twice daily, after 30 minutes, rinse out nose with saline spray.. Use opposite hand per nostril to spray in the nasal steroid allergy spray. 06/17/2016 Appointment: Caroline Friend WPtel: [facility] (15 min) Moderate 06/17/2016 Patient Education: Patient Medication Summary Completed 06/17/2016 Patient Education: Obesity Completed 06/17/2016 Visit Plan: Well Adult - pt was cou nseled about diet, exercise, and encouraged to follow a heart healthy diet and increase activity level. The patient was instructed to RTC yearly for well adult exams and PRN for acute illnesses. The pt was also instructed to have yearly labs for check of cholesterol, thyroid, chem panel, CBC, and renal functioning. Irritable Bowel syndrome - Discussed need for adequate daily fiber intake. Continue with a healthy diet, and I have recommended addition of probiotic to the diet when having loose bowel movements. Chronic anxiety-no change in medications-recommend stress relieving activities ADHD - pt is to start on stimulant medication for treatment of the symptoms of ADHD. The pt is to call if they notice palpitations, rapid weight loss, severe insomnia that does not start to improve after 2-3 days on the medication. Pt is to call for any acute concerns, or if the medication does not seem to be working for improvement of the ADHD symptoms. Pt is aware of risk associated with medication use, and the danger of the medication if in the hands of someone to whom the medication was not prescribed. 12/25/2015 Appointment: Silvia Colon WPtel: [address] [place], [place] [id number] [facility] 12/25/2015 Patient Education: Patient Medication Summary Completed 12/25/2015 Patient Education: Obesity Completed 12/25/2015 Visit Plan: Well Adult - pt was cou nseled about diet, exercise, and encouraged to follow a heart healthy diet and increase activity level. The patient was instructed to RTC yearly for well adult exams and PRN for acute illnesses. The pt was also instructed to have yearly labs for check of cholesterol, thyroid, chem panel, CBC, and renal functioning. 12/23/2014 Patient Education: Patient Medication Summary Completed 12/23/2014 Care Plan: Cbc With Differential Pending 12/23/2014 Care Plan: Lipid Pending 12/23/2014 Care Plan: Comp Metabolic Pending 12/23/2014 Visit Plan: Chronic anxiety - the p t has symptoms of chronic anxiety that have been fairly well controlled since the last office visit. The pt has expected periods of exacerbation with abatement of the symptoms with change in situational exposure. No change in current medications. Irritable Bowel syndrome - Discussed need for adequate daily fiber intake. Continue with a healthy diet, and I have recommended addition of probiotic to the diet when having loose bowel movements. Family history of cardiac disease-recommend yearly labs-patient to fax most recent labs to the office-needs labs if not done within the past year-continue low fat diet, exercise, etc. 12/24/2013 Appointment: Isaiah [facility] [phone] [place] New Patient 12/24/2013 Patient Education: Patient Medication Summary Completed 12/24/2013 Instructions Comment . Well Adult - pt wa s counseled about diet, exercise, and encouraged to follow a heart healthy diet and increase activity level. The patient was instructed to RTC yearly for well adult exams and PRN for acute illnesses. The pt was also instructed to have yearly labs for check of cholesterol, thyroid, chem panel, CBC, and renal functioning. . URI - Pt advised t o increase fluids, vitamin C. Discussed natural and expected course of this diagnosis and need to alert me if symptoms do not follow expected course, or if any worse. RX sent to patient's pharmacy. Allergies - chronic - recommended pt to use allergy medication as prescribed. Pt has been counseled as to the appropriate use of the medication. Pt to call if allergy symptoms are not controlled with the medication. If using nasal spray, instructions as follows: Nasal spray- use twice daily, one spray per nostril twice daily, after 30 minutes, rinse out nose with saline spray.. Use opposite hand per nostril to spray in the nasal steroid allergy spray. . Well Adult - pt wa s counseled about diet, exercise, and encouraged to follow a heart healthy diet and increase activity level. The patient was instructed to RTC yearly for well adult exams and PRN for acute illnesses. The pt was also instructed to have yearly labs for check of cholesterol, thyroid, chem panel, CBC, and renal functioning. Irritable Bowel syndrome - Discussed need for adequate daily fiber intake. Continue with a healthy diet, and I have recommended addition of probiotic to the diet when having loose bowel movements. Chronic anxiety-no change in medications-recommend stress relieving activities ADHD - pt is to start on stimulant medication for treatment of the symptoms of ADHD. The pt is to call if they notice palpitations, rapid weight loss, severe insomnia that does not start to improve after 2-3 days on the medication. Pt is to call for any acute concerns, or if the medication does not seem to be working for improvement of the ADHD symptoms. Pt is aware of risk associated with medication use, and the danger of the medication if in the hands of someone to whom the medication was not prescribed. . Well Adult - pt wa s counseled about diet, exercise, and encouraged to follow a heart healthy diet and increase activity level. The patient was instructed to RTC yearly for well adult exams and PRN for acute illnesses. The pt was also instructed to have yearly labs for check of cholesterol, thyroid, chem panel, CBC, and renal functioning. ADHD - pt is to start on stimulant medication for treatment of the symptoms of ADHD. The pt is to call if they notice palpitations, rapid weight loss, severe insomnia that does not start to improve after 2-3 days on the medication. Pt is to call for any acute concerns, or if the medication does not seem to be working for improvement of the ADHD symptoms. Pt is aware of risk associated with medication use, and the danger of the medication if in the hands of someone to whom the medication was not prescribed. Change from methylphenidate to Adderall XR 10mg daily. . Chronic anxiety - the pt has symptoms of chronic anxiety that have been fairly well controlled since the last office visit. The pt has expected periods of exacerbation with abatement of the symptoms with change in situational exposure. No change in current medications. Irritable Bowel syndrome - Discussed need for adequate daily fiber intake. Continue with a healthy diet, and I have recommended addition of probiotic to the diet when having loose bowel movements. Family history of cardiac disease-recommend yearly labs-patient to fax most recent labs to the office-needs labs if not done within the past year-continue low fat diet, exercise, etc. . Right rib pain-tawny l send patient from xray to r/o fracture-instructed patient to call if symptoms do not resolve or if any worse - discussed deep breathing/coughing every hour-RX written for pain medication and instructed on use-continue ibuprofen as directed-take with food-also discussed topical salonpas patches to affected. Patient verbalized understanding of plan. . Right rib pain-tawny l send patient from xray to r/o fracture-instructed patient to call if symptoms do not resolve or if any worse - discussed deep breathing/coughing every hour-RX written for pain medication and instructed on use-continue ibuprofen as directed-take with food-also discussed topical salonpas patches to affected. Patient verbalized understanding of plan.
--- OUTSIDE RECORDS SUMMARY | 2019-09-26 10:06 | XMS REPORT | CCD ---
Author Author Bashir Colon Organization Paulette Dominique MD, [facility] Address [address] [place] [address] Phone Care Team Providers Care District Extension Service Agent Name Role Phone PP Unavailable CCM Unavailable Summary Purpose Interface Exchange Insurance Providers Payer name Policy type / Coverage type Covered green party ID Effective Begin Date Effective End Date Blue Cross Blue [facility] e Cross/Blue Shield [id number] 2017 Un known Family history Father Diagnosis Age At Onset Hyperlipidemia Unknown Coronary Artery Disease Unknown Hypertension Unknown Social History Social History Element Codes Description Effective Dates Marital status Unknown M arried 12/24/2013 Number of children Unknown 2 12/24/2013 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/24/[address]: 372034 Currently drinks alcohol 5 per week 12/24/2013 [...] Date Stop Date Sta tus Fill Instructions hyoscyamine 0.125 mg sublingual tablet RxNorm: 3297663 TABLET(S) 1 TABLET(S ) SL TID PRN NEEDED 07/18/2018 08/16/2018 Active alprazolam 0.5 mg ta blet RxNorm: 923464 1 Tablet(s) PO BID as neede d 09/28/2017 11/26/2017 Inactive alprazolam 0.5 mg ta blet RxNorm: 935709 1 Tablet(s) PO BID as neede d 09/28/2017 10/27/2017 Inactive Adderall XR 10 mg ca psule,extended release RxNorm: 559910 1 Capsule(s) PO BID 08/19/2017 09/17/2017 In active Adderall XR 10 mg ca psule,extended release RxNorm: 593830 1 Capsule(s) PO BID 08/19/2017 09/17/2017 In active hyoscyamine 0.125 mg sublingual tablet RxNorm: 0789021 TABLET(S) 1 TABLET(S ) SL TID PRN NEEDED 08/15/2017 09/13/2017 Inactive Adderall XR 10 mg ca psule,extended release RxNorm: 252460 1 Capsule(s) PO BID 07/04/2017 08/02/2017 In active Percocet 5 mg-325 mg tablet RxNorm: 5820557 1 Tablet(s) PO Q6 PRN 05/16/2017 No Stop Date Active buspirone 7.5 mg tablet RxNorm: 932511 1 Tablet(s) PO BID 05/16/2017 02/09/2018 Inactive Adderall XR 10 mg ca psule,extended release RxNorm: 337420 1 Capsule(s) PO BID 05/16/2017 06/14/2017 In active alprazolam 0.5 mg ta blet RxNorm: 909593 1 Tablet(s) PO BID as neede d 05/16/2017 07/14/2017 Inactive Adderall XR 10 mg ca psule,extended release RxNorm: 451798 1 Capsule(s) PO BID 03/21/2017 04/19/2017 In active alprazolam 0.5 mg ta blet RxNorm: 473103 1 Tablet(s) PO BID as neede d 03/03/2017 05/01/2017 Inactive Adderall XR 10 mg ca psule,extended release RxNorm: 481661 1 Capsule(s) PO BID 01/25/2017 02/23/2017 In active Adderall XR 10 mg ca psule,extended release RxNorm: 484800 1 Capsule(s) PO daily 12/30/2016 01/24/2017 In active methylphenidate 10 m g tablet RxNorm: 4880843 1 Tablet(s) PO daily and 1/2 tab at noon as needed 10/06/2016 12/29/2016 Inactive alprazolam 0.5 mg ta blet RxNorm: 694617 1 Tablet(s) PO BID as neede d 09/14/2016 12/11/2016 Inactive Augmentin 500 mg-125 mg tablet RxNorm: 969101 1 Tablet(s) PO TID 06/18/2016 06/27/2016 Inactive Augmentin 500 mg-125 mg tablet RxNorm: 558717 1 Tablet(s) PO TID 06/18/2016 06/17/2016 Inactive methylphenidate 10 m g tablet RxNorm: 2855795 1 Tablet(s) PO daily and 1/2 tab at noon as needed 06/14/2016 07/13/2016 Inactive hyoscyamine 0.125 mg sublingual tablet RxNorm: 3047852 Tablet(s) 1 TABLET(S ) SL TID PRN NEEDED 05/19/2016 06/27/2016 Inactive methylphenidate 10 m g tablet RxNorm: 7913108 1 Tablet(s) PO daily and 1/2 at noon as needed 04/23/2016 05/22/2016 Inactive alprazolam 0.5 mg ta blet RxNorm: 545516 1 Tablet(s) PO BID as neede d 03/30/2016 07/25/2016 Inactive hyoscyamine 0.125 mg sublingual tablet RxNorm: 0286925 Tablet(s) 1 TABLET(S ) SL TID PRN NEEDED 03/30/2016 05/18/2016 Inactive methylphenidate 10 m g tablet RxNorm: 4833448 1 Tablet(s) PO daily and 1/2 at noon as needed 02/19/2016 04/22/2016 Inactive methylphenidate 10 m g tablet RxNorm: 7427466 1 Tablet(s) PO daily and 1/2 at noon as needed 02/19/2016 06/13/2016 Inactive hyoscyamine 0.125 mg sublingual tablet RxNorm: 0779110 1 TABLET(S) SL TID P RN NEEDED 02/19/2016 03/29/2016 Inactive alprazolam 0.5 mg ta blet RxNorm: 388060 1 Tablet(s) PO BID as neede d 01/08/2016 03/07/2016 Inactive methylphenidate 10 m g tablet RxNorm: 9702699 1 Tablet(s) PO daily and 1/2 at noon as needed 01/08/2016 02/18/2016 Inactive alprazolam 0.5 mg ta blet RxNorm: 061285 1 Tablet(s) PO QDAY PRN 12/25/2015 01/07/2016 Inactive methylphenidate 5 mg tablet RxNorm: 1207279 1 Tablet(s) PO daily 12/25/2015 01/07/2016 Inactive buspirone 7.5 mg tablet RxNorm: 992981 1 Tablet(s) PO BID 12/25/2015 09/19/2016 Inactive hyoscyamine 0.125 mg sublingual tablet RxNorm: 7973017 1 Tablet(s) SL TID P RN as needed 12/25/2015 03/29/2016 Inactive alprazolam 0.5 mg ta blet RxNorm: 892934 1 Tablet(s) PO QDAY PRN 11/17/2015 12/24/2015 Inactive alprazolam 0.5 mg ta blet RxNorm: 486406 1 Tablet(s) PO QDAY PRN 06/27/2015 05/18/2016 Inactive hyoscyamine 0.125 mg sublingual tablet RxNorm: 5636348 1 Tablet(s) SL TID P RN as needed 12/23/2014 06/20/2015 Inactive buspirone 7.5 mg tablet RxNorm: 052512 1 Tablet(s) PO BID 12/23/2014 09/18/2015 Inactive alprazolam 0.5 mg ta blet RxNorm: 920766 1 Tablet(s) PO QDAY PRN 12/23/2014 11/16/2015 Inactive buspirone 7.5 mg tablet RxNorm: 059095 1 Tablet(s) PO BID 12/24/2013 09/19/2014 Inactive hyoscyamine 0.125 mg sublingual tablet RxNorm: 4805434 1 Tablet(s) SL TID P RN as needed 12/24/2013 06/21/2014 Inactive hyoscyamine 0.125 mg sublingual tablet RxNorm: 3331890 Tablet(s) SL as need ed No Start Date 12/23/2013 Inactive alprazolam 0.5 mg ta blet RxNorm: 333477 Tablet(s) PO PRN No Start Date 12/22/2014 Inactive buspirone 7.5 mg tablet RxNorm: 571833 1 Tablet(s) PO BID No Start Date [...] Item Code Result Date C A/B FLU 9334649 Influe nza A Scr Negative 06/17/2016 C A/B FLU 4722875 Influe nza B Scr Negative 06/17/2016 Cbc [...] 29.7 pg 12/25/2015 Cbc With Differential Ord2 Mitchell% 8.1 % 12/25/2015 Cbc With Differential Ord2 [...] 2.61 K/ul 12/25/2015 Cbc With Differential Ord2 Mitchell ABS# 0.6 K/ul 12/25/2015 Cbc With Differential Ord2 Eos ABS# 0.2 K/ul 12/25/2015 Cbc With Differential Ord2 Baso ABS# 0.0 K/ul 12/25/2015 Comp Metabolic Zgy275 NA 140 mEq/L 12/25/2015 Comp Metabolic Ddn862 K 4.5 mEq/L 12/25/2015 Comp Metabolic Mnh957 CL 107 mEq/L 12/25/2015 Comp Metabolic Rvy631 CO2 27.0 mEq/L 12/25/2015 Comp Metabolic Hsl608 AN ION GAP 11 12/25/2015 Comp Metabolic Nhb321 GL UCOSE 92 mg/dL 12/25/2015 Comp Metabolic Lso558 Cr eat 0.8 mg/dL 12/25/2015 Comp Metabolic Axq700 eG FR 113 ml/min/1.73m2 04/2015 Comp Metabolic Dfx583 BUN 15 mg/dL 12/25/2015 Comp Metabolic Hrp533 B/ C Ratio 18.5 Ratio 12/25/2015 Comp Metabolic Ulu630 CA LCIUM 9.4 mg/dL 12/25/2015 Comp Metabolic Npv117 AL K PHOS 37 U/L 12/25/2015 Comp Metabolic Zpi083 T(SGOT) 24 U/L 12/25/2015 Comp Metabolic Xkk706 AL T(SGPT) 25 U/L 12/25/2015 Comp Metabolic Ahy311 BI LI T 0.8 mg/dL 12/25/2015 Comp Metabolic Cif765 AL BUMIN 4.5 g/dL 12/25/2015 Comp Metabolic Qpm379 TP RO 6.7 g/dL 12/25/2015 Comp Metabolic Izn513 GL OB 2.2 g/dL 12/25/2015 Comp Metabolic Sfa221 A/ G Ratio 2.1 Ratio 12/25/2015 Comp Metabolic Ibo574 Os mo 280 mOsmo 12/25/2015 Tsh Ord6 [...] 12/25/2015 Constitutional No chills 12/25/2015 Psychiatric anxiety 110 04/2015 Eyes No vision change Ears/Nose/Throat/Neck No [...] 1: 116/70 Code: 8480-6 BMI: 30.9 Code: 10212-1 Heart Rate 1: 99 bpm Height: 6'1" SpO2: 95% Temperature: 36.2 (C ) / 97.1 (F) Weight: 234 lbs 12/30/2016 Blood Pressure 1: 142/88 Code: 8480-6 BMI: 30.3 Code: 80893-0 Heart Rate 1: 91 bpm Height: 6'1" SpO2: 98% Weight: 230 lbs 06/17/2016 Blood Pressure 1: 134/70 Code: 8480-6 BMI: 30.1 Code: 90356-5 Heart Rate 1: 84 bpm Height: 6'1" SpO2: 94% Temperature: 37.4 (C ) / 99.3 (F) Weight: 228 lbs 12/25/2015 Blood Pressure 1: 130/86 Code: 8480-6 BMI: 29.8 Code: 45954-8 Heart Rate 1: 85 bpm Height: 6'1" SpO2: 96% Weight: 226 lbs 12/23/2014 Blood Pressure 1: 110/68 Code: 8480-6 BMI: 27.7 Code: 76931-6 Heart Rate 1: 84 bpm Height: 6'1" SpO2: 94% Weight: 210 lbs 12/24/2013 Blood Pressure 1: 124/78 Code: 8480-6 BMI: 26.5 Code: 65424-6 Heart Rate 1: 60 bpm Height: 6'1" [...] Encounters Encounter Performer Loca tion Codes Date ([id number]) 71259 EST. 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] Diagnosis: Generalized anxiety disorder[ICD10: F41.1] [facility] CPT-4: 35738 12/25/2015 ([id number]) PREV VISIT E ST AGE 18-39 Diagnosis: Encounter for general adult medical examination without abnormal findings[ICD10: Z00.00] [facility] CPT-4: 56437 12/23/2014 Office outpatient ne w 30 minutes Diagnosis: Anxiety[ICD9: 300.00] Diagnosis: Irritable bowel syndrome[ICD9: 564.1] Diagnosis: Family history of cardiovascular disease[ICD9: V17.49] [facility] CPT-4: 50025 12/24/2013 Plan of Care Planned Activity Notes C odes Status Date Appointment: Paulette Domiinque [facility]el[id number] ([facility] min[facility] Moderate 07/28/2017 Visit Plan: [...] of plan. 05/16/2017 Appointment: Silvia Colon WPtel: [facility] [place] [place] (15 min) Moderate 05/16/2017 Patient Education: Patient Medication Summary Completed 05/16/2017 Care Plan: X-RAY EXAM RIBS SCOOTER 3 VIEWS LOINC : 08479-5 Pending 05/16/2017 Visit Plan: Well Adult - [...] 10mg daily. 12/30/2016 Appointment: Paulette Dominique WPtel: [facility] Physical 12/30/2016 Patient Education: Patient Medication Summary Completed 12/30/2016 Patient Education: Obesity Completed 12/30/2016 Appointment: Silvia Colon WPtel: [address] [place] [address] Physical 12/27/2016 Visit Plan: URI - Pt [...] allergy spray. 06/17/2016 Appointment: Caroline Friend WPtel: [facility] (15 min) Moderate 06/17/2016 Patient Education: Patient [...] not prescribed. 12/25/2015 Appointment: Silvia Colon WPtel: [address] [place], [place] [phone] Physical 12/25/2015 Patient Education: Patient Medication Summary Completed [...] low fat diet, exercise, etc. 12/24/2013 Appointment: Silvia Colon WPtel: [address] [place], [place] [phone] [place] New Patient 12/24/2013 Patient Education: Patient [...]
--- OUTSIDE RECORDS SUMMARY | 2019-09-26 10:07 | XMS REPORT | Continuity of Care Document ---
Author Organization Unknown Address Unknown Phone Unavailable Allergies Active Description Code Type Severity Reaction Onset Reported/Identified Relationship to Patient Clinical Status Yes Sulfa (Sulfonamide Antibiotics) M58745 0491 Drug Allergy Unknown RASH 013 Medications There is no data. Problems Date Dx Coded Attending Type Code Diagnosis Diagnosed By 03/06/2012 Ot 215.0 JAGDISH MARIE SOFT TISSUE HEAD 05/16/2017 Ot 215.0 JAGDISH MARIE SOFT TISSUE HEAD 05/16/2017 Ot V72.84 EXA M PRE- OPERATIVE NOS 05/17/2017 UVALDO ROSADO EDITOR SOUND Ot R07.81 PLEURODYNIA 05/17/2017 UVALDO ROSADO [facility] Ot W19.XXXA UNSPECIFIED FALL, INITIAL ENCOUNTER 06/06/2017 UVALDO ROSADO [employer]OR [employer] Ot R07.81 PLEURODYNIA 06/06/2017 UVALDO ROSADO [employer] Ot W19.XXXA UNSPECIFIED FALL, INITIAL ENCOUNTER 12/29/2017 GANESH BEAL EDITOR SOUND Ot G47.33 OBSTRUCTIVE SLEEP APNEA (ADULT) (PEDIATR 12/29/2017 UVALDO ROSADO [employer] Ot R07.81 PLEURODYNIA 12/29/2017 UVALDO ROSADO [facility] Ot W19.XXXA UNSPECIFIED FALL, INITIAL ENCOUNTER 04/19/2018 SELF, PATIENT REFERRAL Ot M25.552 PAIN IN LEFT HIP 04/19/2018 SELF, PATIENT REFERRAL Ot M54.6 PAIN IN THORACIC SPINE 04/19/2018 SELF, PATIENT REFERRAL Ot M25.552 PAIN IN LEFT HIP 04/19/2018 SELF, PATIENT REFERRAL Ot M54.6 PAIN IN THORACIC SPINE 05/10/2018 SELF, PATIENT REFERRAL Ot M25.552 PAIN IN LEFT HIP 05/10/2018 SELF, PATIENT REFERRAL Ot M54.6 PAIN IN THORACIC SPINE 06/12/2018 SELF, PATIENT REFERRAL Ot M25.552 PAIN IN LEFT HIP 06/12/2018 SELF, PATIENT REFERRAL Ot M54.6 PAIN IN THORACIC SPINE 07/06/2018 SELF, PATIENT REFERRAL Ot M25.552 PAIN IN LEFT HIP 07/06/2018 SELF, PATIENT REFERRAL Ot M54.6 PAIN IN THORACIC SPINE 07/12/2018 SELF, PATIENT REFERRAL Ot M25.552 PAIN IN LEFT HIP 07/12/2018 SELF, PATIENT REFERRAL Ot M54.6 PAIN IN THORACIC SPINE 04/18/2019 UVALDO ROSADOP Ot R07.81 PLEURODYNIA 04/18/2019 UVALDO ROSADOP Ot W19.XXXA UNSPECIFIED FALL, INITIAL ENCOUNTER 04/18/2019 SELF, PATIENT REFERRAL Ot M25.552 PAIN IN LEFT HIP 04/18/2019 SELF, PATIENT REFERRAL Ot M54.6 PAIN IN THORACIC SPINE Procedures There is no data. Results There is no data. Encounters ACCT No. Visit Date/Time Discharge Status Pt. Type Provider Facility Loc./Unit Complaint [id number] 12/30/2016 18:30:01 12/30/2016 23:59:5 9 CLS Outpatient [id number] 07/07/2018 00:14:00 019 23:59:59 CLS Preadmit SELF, PATIENT REFERRAL Via [facility] REHAB NECK/SHOULDER PAIN; HIP PAIN [id number] 06/28/2018 11:00:00 019 00:01:00 DIS Outpatient SELF, PATIENT REFERRAL [facility] REHAB NECK/SHOULDER P AIN; HIP PAIN [id number] 01/10/2018 09:53:00 018 23:59:59 CLS Preadmit GANESH BEAL EDITOR SOUND [facility] SLEEP TONNY G47.33 [id number] 12/29/2017 13:00:00 018 13:30:00 DIS Outpatient GANESH BEAL EDITOR SOUND [facility] SLEEP TONNY [id number] 11/09/2017 07:24:00 018 23:59:59 CLS Preadmit GANESH BEAL EDITOR SOUND [facility] SLEEP TONNY G47.33 [id number] 05/16/2017 15:41:00 018 23:59:59 CLS Outpatient UVALDO ROSADO [facility] RAD RIGHT RIB PAIN [id number] 03/06/2012 07:57:00 Document Registration [id number] 02/29/2012 09:45:00 Document Registration
--- OUTSIDE RECORDS SUMMARY | 2019-09-26 10:07 | XMS REPORT | CCD ---
Author Author Bashir Colon Organization Paulette Dominique MD, [facility] Address [address] [place] [address] Phone Care Team Providers Care Port Patrol Officer Name Role Phone PP Unavailable CCM Unavailable Summary Purpose Interface Exchange Insurance Providers Payer name Policy type / Coverage type Covered libertarian ID Effective Begin Date Effective End Date Blue Cross Blue Shield [facility] e Cross/Blue Shield [id number] Unknown Unk nown Family history Father Diagnosis Age At Onset Hyperlipidemia Unknown Coronary Artery Disease Unknown Hypertension Unknown Social History Social History Element Codes Description Effective Dates Marital status Unknown M arried 12/24/2013 Number of children Unknown 2 12/24/2013 Employment 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 [facility] 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 12/24/[address]: 196071 Currently drinks alcohol 5 per week 12/24/2013 Allergies, Adverse Reactions, Alerts Substance Reaction Codes Entered Date Inactivated Date Status SULFA(SULFONAMIDE AN TIBIOTICS) rash Unknown 12/24/2013 No Inactive Date Active Past Medical History Illness Codes Condition Status Onset Date Resolved Date Attention-deficit hy peractivity disorder, predominantly inattentive type [...] Condition Codes Effectiv e Dates Condition Status Attention-deficit hy peractivity disorder, predominantly inattentive type [...] Date Stop Date Sta tus Fill Instructions Adderall XR 10 mg ca psule,extended release RxNorm: 650749 1 Capsule(s) PO BID 03/21/2017 04/19/2017 Ac tive alprazolam 0.5 mg ta blet RxNorm: 949795 1 Tablet(s) PO BID as neede d 03/03/2017 05/01/2017 Active Adderall XR 10 mg ca psule,extended release RxNorm: 876202 1 Capsule(s) PO BID 01/25/2017 02/23/2017 In active Adderall XR 10 mg ca psule,extended release RxNorm: 676665 1 Capsule(s) PO daily 12/30/2016 01/24/2017 In active methylphenidate 10 m g tablet RxNorm: 0429640 1 Tablet(s) PO daily and 1/2 tab at noon as needed 10/06/2016 12/29/2016 Inactive alprazolam 0.5 mg ta blet RxNorm: 311213 1 Tablet(s) PO BID as neede d 09/14/2016 12/11/2016 Inactive Augmentin 500 mg-125 mg tablet RxNorm: 417769 1 Tablet(s) PO TID 06/18/2016 06/27/2016 Inactive Augmentin 500 mg-125 mg tablet RxNorm: 142871 1 Tablet(s) PO TID 06/18/2016 06/17/2016 Inactive methylphenidate 10 m g tablet RxNorm: 1244855 1 Tablet(s) PO daily and 1/2 tab at noon as needed 06/14/2016 07/13/2016 Inactive hyoscyamine 0.125 mg sublingual tablet RxNorm: 6271484 Tablet(s) 1 TABLET(S ) SL TID PRN NEEDED 05/19/2016 06/27/2016 Inactive methylphenidate 10 m g tablet RxNorm: 3842338 1 Tablet(s) PO daily and 1/2 at noon as needed 04/23/2016 05/22/2016 Inactive alprazolam 0.5 mg ta blet RxNorm: 844094 1 Tablet(s) PO BID as neede d 03/30/2016 07/25/2016 Inactive hyoscyamine 0.125 mg sublingual tablet RxNorm: 5134086 Tablet(s) 1 TABLET(S ) SL TID PRN NEEDED 03/30/2016 05/18/2016 Inactive methylphenidate 10 m g tablet RxNorm: 8498173 1 Tablet(s) PO daily and 1/2 at noon as needed 02/19/2016 04/22/2016 Inactive methylphenidate 10 m g tablet RxNorm: 5133364 1 Tablet(s) PO daily and 1/2 at noon as needed 02/19/2016 06/13/2016 Inactive hyoscyamine 0.125 mg sublingual tablet RxNorm: 5199475 1 TABLET(S) SL TID P RN NEEDED 02/19/2016 03/29/2016 Inactive alprazolam 0.5 mg ta blet RxNorm: 960459 1 Tablet(s) PO BID as neede d 01/08/2016 03/07/2016 Inactive methylphenidate 10 m g tablet RxNorm: 5991874 1 Tablet(s) PO daily and 1/2 at noon as needed 01/08/2016 02/18/2016 Inactive buspirone 7.5 mg tablet RxNorm: 031889 1 Tablet(s) PO BID 12/25/2015 09/19/2016 Inactive alprazolam 0.5 mg ta blet RxNorm: 600868 1 Tablet(s) PO QDAY PRN 12/25/2015 01/07/2016 Inactive methylphenidate 5 mg tablet RxNorm: 6774512 1 Tablet(s) PO daily 12/25/2015 01/07/2016 Inactive hyoscyamine 0.125 mg sublingual tablet RxNorm: 5728875 1 Tablet(s) SL TID P RN as needed 12/25/2015 03/29/2016 Inactive alprazolam 0.5 mg ta blet RxNorm: 704504 1 Tablet(s) PO QDAY PRN 11/17/2015 12/24/2015 Inactive alprazolam 0.5 mg ta blet RxNorm: 649488 1 Tablet(s) PO QDAY PRN 06/27/2015 05/18/2016 Inactive hyoscyamine 0.125 mg sublingual tablet RxNorm: 7081069 1 Tablet(s) SL TID P RN as needed 12/23/2014 06/20/2015 Inactive buspirone 7.5 mg tablet RxNorm: 178037 1 Tablet(s) PO BID 12/23/2014 09/18/2015 Inactive alprazolam 0.5 mg ta blet RxNorm: 090078 1 Tablet(s) PO QDAY PRN 12/23/2014 11/16/2015 Inactive buspirone 7.5 mg tablet RxNorm: 191702 1 Tablet(s) PO BID 12/24/2013 09/19/2014 Inactive hyoscyamine 0.125 mg sublingual tablet RxNorm: 9464105 1 Tablet(s) SL TID P RN as needed 12/24/2013 06/21/2014 Inactive hyoscyamine 0.125 mg sublingual tablet RxNorm: 3079439 Tablet(s) SL as need ed No Start Date 12/23/2013 Inactive alprazolam 0.5 mg ta blet RxNorm: 772126 Tablet(s) PO PRN No Start Date 12/22/2014 Inactive buspirone 7.5 mg tablet RxNorm: 993331 1 Tablet(s) PO BID No Start Date 12/23/2013 Inactive Medication Administered No Medication Administered data Immunizations Vaccine Codes Date Status Influenza CVX: 141 11/21 completed Tetanus, Diptheria, Pertussis CVX: 113 08/22/2003 completed Tetanus/Diptheria CVX: 113 08/22/2003 completed Assessments Condition Codes Effectiv e Dates Encounter for general adult medical exam ination [...] Visit Reason For Visit Effective Dates Notes well man exam (18-39 years) 12/30/2016 sinus congestion 06/17/2016 well man exam (18-39 years) 12/25/2015 anxiety 12/23/2014 anxiety 12/24/2013 Results Observation Observation Code Item Item Code Result Date C A/B FLU 3842683 Influe nza A Scr Negative 06/17/2016 C A/B FLU 8707349 Influe nza B Scr Negative 06/17/2016 Cbc With Differential Ord2 WBC 7.57 K/ul 12/25/2015 Cbc With Differential Ord2 RBC 5.15 M/ul 12/25/2015 Cbc With Differential Ord2 HGB 15.3 g/dl 12/25/2015 Cbc With Differential Ord2 Neut% 55.0 % 12/25/2015 Cbc With Differential Ord2 HCT 45.1 % 12/25/2015 Cbc With Differential Ord2 MCV 87.6 fl 12/25/2015 Cbc With Differential Ord2 Lymph% 34.5 % 12/25/2015 Cbc With Differential Ord2 MCH 29.7 pg 12/25/2015 Cbc With Differential Ord2 [place]% 8.1 % 12/25/2015 Cbc With Differential Ord2 [...] 2.61 K/ul 12/25/2015 Cbc With Differential Ord2 [place] ABS# 0.6 K/ul 12/25/2015 Cbc With Differential Ord2 Eos ABS# 0.2 K/ul 12/25/2015 Cbc With Differential Ord2 Baso ABS# 0.0 K/ul 12/25/2015 Comp Metabolic Amf301 NA 140 mEq/L 12/25/2015 Comp Metabolic Dwy254 K 4.5 mEq/L 12/25/2015 Comp Metabolic Ryx113 CL 107 mEq/L 12/25/2015 Comp Metabolic Aie612 CO2 27.0 mEq/L 12/25/2015 Comp Metabolic Iik254 AN ION GAP 11 12/25/2015 Comp Metabolic Ulc766 GL UCOSE 92 mg/dL 12/25/2015 Comp Metabolic Dtk497 Cr eat 0.8 mg/dL 12/25/2015 Comp Metabolic Jzl250 eG FR 113 ml/min/1.73m2 04/2015 Comp Metabolic Vsv549 BUN 15 mg/dL 12/25/2015 Comp Metabolic Nvb543 B/ C Ratio 18.5 Ratio 12/25/2015 Comp Metabolic Gtw604 CA LCIUM 9.4 mg/dL 12/25/2015 Comp Metabolic Cgl003 AL K PHOS 37 U/L 12/25/2015 Comp Metabolic Bbc027 T(SGOT) 24 U/L 12/25/2015 Comp Metabolic Zsx609 AL T(SGPT) 25 U/L 12/25/2015 Comp Metabolic Sbx273 BI LI T 0.8 mg/dL 12/25/2015 Comp Metabolic Erw580 AL BUMIN 4.5 g/dL 12/25/2015 Comp Metabolic Ktf353 TP RO 6.7 g/dL 12/25/2015 Comp Metabolic Wvp528 GL OB 2.2 g/dL 12/25/2015 Comp Metabolic Mvh684 A/ G Ratio 2.1 Ratio 12/25/2015 Comp Metabolic Phf540 Os mo 280 mOsmo 12/25/2015 Tsh Ord6 hTSH II 1.84 uIU/mL 12/25/2015 Lipid Ord30 CHOL 183 mg/dL 12/25/2015 Lipid Ord30 HDL 54.0 mg/dl 12/25/2015 Lipid Ord30 TRIG 76 mg/dL 12/25/2015 Lipid Ord30 LDL 114 mg/dL 12/25/2015 Lipid Ord30 C/HDL 3.4 Ratio 12/25/2015 Review of Systems System Result Effective Dates Constitutional No recent illness 12/30/2016 Constitutional No [...] Neurologic No headache 1 03/01/2016 Psychiatric anxiety 11/10/2016 Psychiatric No depression 12/30/2016 Constitutional recent illness [...] clear 12/24/2013 None Full Exam - General 1995 Ears/Nose/Throat oral cavity/pharynx/larynx Overall: oropharyngeal mucosa clear [...] No Procedures data Vital Signs Date Vital 12/30/2016 Blood Pressure 1: 142/88 Code: 8480-6 BMI: 30.3 Code: 24809-3 Heart Rate 1: 91 bpm Height: 6'1" SpO2: 98% Weight: 230 lbs 06/17/2016 Blood Pressure 1: 134/70 Code: 8480-6 BMI: 30.1 Code: 89852-7 Heart Rate 1: 84 bpm Height: 6'1" SpO2: 94% Temperature: 37.4 (C ) / 99.3 (F) Weight: 228 lbs 12/25/2015 Blood Pressure 1: 130/86 Code: 8480-6 BMI: 29.8 Code: 56385-8 Heart Rate 1: 85 bpm Height: 6'1" SpO2: 96% Weight: 226 lbs 12/23/2014 Blood Pressure 1: 110/68 Code: 8480-6 BMI: 27.7 Code: 94491-2 Heart Rate 1: 84 bpm Height: 6'1" SpO2: 94% Weight: 210 lbs 12/24/2013 Blood Pressure 1: 124/78 Code: 8480-6 BMI: 26.5 Code: 05191-0 Heart Rate 1: 60 bpm Height: 6'1" Weight: 201 lbs Functional Status No Functional Status data History of Present Illness Symptom Name Status Resu lt Effective Date Notes well man exam (18-39 years) Lifestyle regular [...] Encounters Encounter Performer Loca tion Codes Date (44424) PREV VISIT E ST AGE 18-39 Diagnosis: Encounter for general adult medical examination without abnormal findings[ICD10: Z00.00] Diagnosis: Attention-deficit hyperactivity disorder, 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] Diagnosis: Generalized anxiety disorder[ICD10: F41.1] [facility] CPT-4: 34306 12/25/2015 (75781) PREV VISIT E AGE 18-39 Diagnosis: Encounter for general adult medical examination without abnormal findings[ICD10: Z00.00] [facility] CPT-4: 50180 12/23/2014 Office outpatient ne w 30 minutes Diagnosis: Anxiety[ICD9: 300.00] Diagnosis: Irritable bowel syndrome[ICD9: 564.1] Diagnosis: Family history of cardiovascular disease[ICD9: V17.49] [facility] CPT-4: 65642 12/24/2013 Plan of Care Planned Activity Notes C odes Status Date Visit Plan: Well Adult - pt was [...] 10mg daily. 12/30/2016 Appointment: Paulette Dominique WPtel: [facility] Physical 12/30/2016 Patient Education: Patient Medication Summary Completed 12/30/2016 Patient Education: Obesity Completed 12/30/2016 Appointment: Silvia Colon WPtel: [phone] Physical 12/27/2016 Visit Plan: URI - Pt [...] allergy spray. 06/17/2016 [facility]ment[phone] [phone] ([facility] min) Moderate 06/17/2016 Patient Education: Patient [...] not prescribed. 12/25/2015 Appointment: Silvia Colon WPtel: [address] [place], [place] [phone] Physical 12/25/2015 Patient Education: Patient Medication Summary [...] exercise, etc. 12/24/2013 App[facility]ment: [phone] [phone] New Patient 12/24/2013 Patient Education: Patient Medication [...]
[2019-09-26] MEDS ORDERED: IOHEXOL 350 MG/ML 100 ML (OMNIPAQUE 350) VIAL IV ONE (10:15)
[2019-09-26] MEDS ORDERED: NS 100 ML (IVPB) BAG IV ONE (10:15)
[2019-09-26] MEDS ORDERED: HOLD METFORMIN - RECEIVED CONTRAST 20 ML VIAL IV SCH (10:15)
[2019-09-26 10:19] LABS: BASOPHILS % (AUTO) 0 % (0-10); EOSINOPHILS # (AUTO) 0.2 10^3/uL (0.0-0.3); EOSINOPHILS % (AUTO) 2 % (0-10); HEMATOCRIT 45 % (40-54); HEMOGLOBIN 15.6 G/DL (13.3-17.7); LYMPHOCYTES # (AUTO) 1.8 X 10^3 (1.0-4.0); LYMPHOCYTES % (AUTO) 21 % (12-44); MEAN CORPUSCULAR HEMOGLOBIN 31 PG (25-34); MEAN CORPUSCULAR HGB CONC 35 G/DL (32-36); MEAN CORPUSCULAR VOLUME 88 FL (80-99); MEAN PLATELET VOLUME 9.7 FL (7.4-10.4); MONOCYTES # (AUTO) 0.8 X 10^3 (0.0-1.0); MONOCYTES % (AUTO) 10 % (0-12); NEUTROPHILS # (AUTO) 5.6 X 10^3 (1.8-7.8); NEUTROPHILS % (AUTO) 67 % (42-75); PLATELET COUNT 267 10^3/uL (130-400); RED CELL DISTRIBUTION WIDTH 13.4 % (10.0-14.5); WHITE BLOOD COUNT 8.4 10^3/uL (4.3-11.0)
[2019-09-26 10:30] LABS: CLARITY,URINE CLEAR; COLOR,URINE ORANGE; GLUCOSE, URINE (UA) NEGATIVE (NEGATIVE); KETONES,URINE TRACE (NEGATIVE); LEUKOCYTE ESTERASE ,URINE NEGATIVE (NEGATIVE); NITRITE,URINE NEGATIVE (NEGATIVE); PH,URINE 5.5 (5-9); PROTEIN,URINE NEGATIVE (NEGATIVE)
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
[2019-09-26] MEDS ORDERED: LACTATED RINGERS 1,000 ML IV ONE (10:34)
[2019-09-26 10:37] LABS: ALANINE AMINOTRANSFERASE 43 U/L (0-55); ALBUMIN 4.8 GM/DL (3.2-4.5); ALKALINE PHOSPHATASE 42 U/L (40-136); BILIRUBIN,TOTAL 1.8 MG/DL (0.1-1.0); BUN/CREATININE RATIO 14; CALCIUM 9.6 MG/DL (8.5-10.1); CARBON DIOXIDE 22 MMOL/L (21-32); CHLORIDE 105 MMOL/L (98-107); CREATININE SERUM 0.94 MG/DL (0.60-1.30); GFR ESTIMATED > 60; GLUCOSE 95 MG/DL (70-105); POTASSIUM 3.8 MMOL/L (3.6-5.0); SODIUM 140 MMOL/L (135-145); TOTAL PROTEIN 7.5 GM/DL (6.4-8.2)
[2019-09-26] MEDS ORDERED: ALPR0.5T7 (10:38)
[2019-09-26] MEDS ORDERED: LISD30CA3 (10:38)
[2019-09-26] MEDS ORDERED: AMLO2.5T4 (10:38)
[2019-09-26] MEDS ORDERED: ATOR20TA66 (10:38)
[2019-09-26 10:42] LABS: BACTERIA,URINE TRACE /HPF; BILIRUBIN,URINE 1+ (NEGATIVE); SQUAMOUS EPITHELIAL CELL,UR RARE /HPF
[2019-09-26] MEDS ORDERED: fentaNYL INJECTION 100 MCG/2 ML AMP IVP ONE (10:45)
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
--- NOTE | 2019-09-26 11:05 | NUR ---
RETURN FROM CT
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
[2019-09-26] MEDS ORDERED: HYDR-3812 PO (12:19)
[2019-09-26 12:40] VITALS: BP 136/91
== END 2019-09-26 12:40 | disposition home or self-care (01) ==
LOC: EDUNIT# 09:58 → ER 10:00
DX: S22.42XA Multiple fractures of ribs, left side, initial encounter for closed fracture (principal); S40.022A Contusion of left upper arm, initial encounter; S80.12XA Contusion of left lower leg, initial encounter; T14.8XXA Other injury of unspecified body region, initial encounter; R40.2142 Coma scale, eyes open, spontaneous, at arrival to emergency department; R40.2252 Coma scale, best verbal response, oriented, at arrival to emergency department; R40.2362 Coma scale, best motor response, obeys commands, at arrival to emergency department; Z88.2 Allergy status to sulfonamides; V18.4XXA Pedal cycle driver injured in noncollision transport accident in traffic accident, initial encounter
CPT/HCPCS: 36415; 71100; 72125; 74177; 80053; 81000; 85025; 96374